=== PATIENT | male | born 2000 | race Caucasian/White ===

== ENCOUNTER 2018-11-05 17:24 | Emergency (ER) | payer SELFPAY ==
[~2018-11-05] VITALS: Ht 175.3 cm; Wt 82.7 kg
[2018-11-05 17:28] VITALS: Ht 175.3 cm; Wt 82.7 kg
[2018-11-05 18:59] VITALS: BP 121/54
== END 2018-11-05 18:59 | disposition home or self-care (01) ==
LOC: ED 17:24
DX: J02.9 Acute pharyngitis, unspecified (principal)
CPT/HCPCS: J1100